=== PATIENT | female | born 1985 | race American Indian/Alaskan Native ===

== ENCOUNTER → 2020-11-06 | Outpatient (RCR) | payer BC | LOC: PT 10-27 15:03 | PROVIDERS: ATTEND Orthopaedic Surgery Sports Medicine | DX: M25.511 Pain in right shoulder (principal); S13.4XXD Sprain of ligaments of cervical spine, subsequent encounter; M41.82 Other forms of scoliosis, cervical region ==

== ENCOUNTER 2020-11-20 12:00 | Outpatient (RCR) | payer BC | END 2020-12-07 | LOC: PT 12:00 | PROVIDERS: ATTEND Orthopaedic Surgery Sports Medicine | DX: M54.2 Cervicalgia (principal); M54.6 Pain in thoracic spine; M62.838 Other muscle spasm; M53.82 Other specified dorsopathies, cervical region ==

== ENCOUNTER 2020-12-09 14:17 | Outpatient (RCR) | payer BC | END 2021-01-06 | LOC: PT 14:17 | PROVIDERS: ATTEND Orthopaedic Surgery Sports Medicine | DX: M54.2 Cervicalgia (principal); M54.6 Pain in thoracic spine; M62.838 Other muscle spasm; M53.82 Other specified dorsopathies, cervical region ==